=== PATIENT | male | born 1990 ===

== ENCOUNTER 2018-09-07 14:25 | Emergency (ER) | payer MEDICAID ==
[2018-09-07 14:31] VITALS: BP 116/73; PULSE 68; RESP 16; TEMP 98.3; O2SAT 100
--- NOTE | 2018-09-07 15:09 | ED PDOC ---
HPI: CCC, URI, Sore Throat Time Seen by Provider: 09/07/18 14:58 Chief Complaint (Nursing): ENT Problem Chief Complaint (Provider): ENT Problem History Per: Patient History/Exam Limitations: no limitations Additional Complaint(s): Toby Collier is a 28 year old male with no past medical history, who presents to the emergency department complaining of having nasal pain, forehead pain, associated with thick nasal congestion and mild cough. Patient denies any fever, head injury, LOC, shortness of breath, chest pain, or hemoptysis. PMD: no provider Past Medical History Reviewed: Historical Data, Nursing Documentation, Vital Signs Vital Signs: Last Vital Signs Temp 98.3 F 09/07/18 14:28 Pulse 68 09/07/18 14:28 Resp 16 09/07/18 14:28 BP 116/73 09/07/18 14:28 Pulse Ox 100 09/07/18 14:28 - Medical History PMH: No Chronic Diseases - Surgical History Surgical History: No Surg Hx - Family History Family History: States: Unknown Family Hx - Home Medications Home Medications: Ambulatory Orders Medication Instructions Recorded Amoxicillin/Clavulanate [Augmentin 1 tab PO BID #20 tab 09/07/18 875 MG-125 MG] Fluticasone Propionate [Flonase] 2 spr NS DAILY PRN #1 bottle 09/07/18 - Allergies Allergies/Adverse Reactions: Allergies Allergy/AdvReac Type Severity Reaction Status Date / Time No Known Allergies Allergy Verified 09/07/18 14:30 Review of Systems ROS Statement: Except As Marked, All Systems Reviewed And Found Negative Constitutional: Negative for: Fever ENT: Positive for: Nose Pain, Nose Congestion, Other (forehead pain) Respiratory: Positive for: Cough. Negative for: Shortness of Breath, Hemoptysis Physical Exam - Reviewed Nursing Documentation Reviewed: Yes Vital Signs Reviewed: Yes - Physical Exam Appears: Positive for: Non-toxic, No Acute Distress Head Exam: Positive for: ATRAUMATIC, NORMOCEPHALIC Skin: Positive for: Normal Color, Warm, Dry Eye Exam: Positive for: Normal appearance, EOMI, PERRL ENT: Positive for: Nasal Congestion (thick yellow), Other (bilateral sinus pain and drainage). Negative for: Pharyngeal Erythema, Tonsillar Exudate, Tonsillar Swelling Respiratory: Positive for: Normal Breath Sounds. Negative for: Respiratory Distress Neurologic/Psych: Positive for: Alert, Oriented (x3). Negative for: Facial Droop - ECG O2 Sat by Pulse Oximetry: 100 (RA) Pulse Ox Interpretation: Normal Medical Decision Making Medical Decision Making: Time: 1458 Scribe Attestation: Documented by Jonny Krause, acting as a scribe for Reymundo Gonzales Provider Scribe Attestation: All medical record entries made by the Scribe were at my direction and personally dictated by me. I have reviewed the chart and agree that the record accurately reflects my personal performance of the history, physical exam, medical decision making, and the department course for this patient. I have also personally directed, reviewed, and agree with the discharge instructions and disposition. Disposition - Clinical Impression Clinical Impression: Acute sinusitis - Patient ED Disposition Is Patient to be Admitted: No - Disposition Referrals: [facility] [Outside] Jose D Easley MD [Staff Provider] - [facility] [Outside] Disposition: Routine/Home Disposition Time: 15:08 Condition: STABLE Additional Instructions: FOLLOW UP WITH [facility] OR DR. EASLEY (ENT) FOR FURTHER EVALUATION RETURN TO ED IMMEDIATELY IF SYMPTOMS WORSEN TOBY COLLIER, thank you for letting us take care of you today. Your provider was Cailin Welsh MD and you were treated for NOSE PAIN. The emergency medical care you received today was directed at your acute symptoms. If you were prescribed any medication, please fill it and take as directed. It may take several days for your symptoms to resolve. Return to the Emergency Department if your symptoms worsen, do not improve, or if you have any other problems. Please contact your doctor or call one of the physicians/clinics you have been referred to that are listed on the Patient Visit Information form that is included in your discharge packet. Bring any paperwork you were given at discharge with you along with any medications you are taking to your follow up visit. Our treatment cannot replace ongoing medical care by a primary care provider outside of the emergency department. Thank you for allowing the [facility] team to be part of your care today. If you had an X-Ray or CT scan: A Radiologist will review the ED reading if any change in treatment is needed we will contact you. If you had a blood, urine, or wound culture: It will take several days for the results, if any change in treatment is needed we will contact you. If you had an STI test: It will take 48 hours for the results. Please call after 1 week if you have not heard back. Prescriptions: Amoxicillin/Clavulanate [Augmentin 875 MG-125 MG] 1 tab PO BID #20 tab Fluticasone Propionate [Flonase] 2 spr NS DAILY PRN #1 bottle PRN Reason: Allergy Symptoms Instructions: Sinusitis, Adult (DC) Print Language: [place]
== END 2018-09-07 15:26 | disposition home or self-care (01) ==
LOC: H.ER 14:25
DX: J01.90 Acute sinusitis, unspecified (principal)